=== PATIENT | female | born 1965 | race Caucasian/White ===

== ENCOUNTER 2024-04-09 22:34 | Emergency (ER) | payer OTHER ==
[~2024-04-09] VITALS: Ht 165.1 cm; Wt 79.4 kg
[2024-04-09] MEDS ORDERED: FLUO10 (22:53)
[2024-04-09] MEDS ORDERED: MELO7.5 PO (22:53)
[2024-04-09] MEDS ORDERED: HYDROcodone 5-APAP 325 TAB PO ONE (23:25)
[2024-04-10] MEDS ORDERED: Norco 5-325 Ta1 EACH PO (00:20)
[2024-04-10] MEDS ORDERED: IBU600 MG PO (00:20)
== END 2024-04-10 00:26 | disposition home or self-care (01) ==
LOC: ER 22:34
DX: S09.90XA Unspecified injury of head, initial encounter (principal); S50.02XA Contusion of left elbow, initial encounter; W01.0XXA Fall on same level from slipping, tripping and stumbling without subsequent striking against object, initial encounter; Z91.040 Latex allergy status; Z79.899 Other long term (current) drug therapy
CPT/HCPCS: 70450; 72125; 73080; 99284-25; A9270